=== PATIENT | female | born 1980 | race Caucasian/White ===

== ENCOUNTER → 2017-12-27 | Outpatient (CLI) | payer BC ==
--- NOTE | 2017-12-27 15:56 | RAD ---
Pelvic ultrasound, 12/27/2017: HISTORY: Excessive and frequent menstruation Transabdominal and transvaginal scans were obtained. The uterus measures 9.7 x 5.0 x 4.4 cm. This intrauterine echo complex measures 5-6 mm. No uterine abnormality is detected. The ovaries are of normal size. They contain small follicular cysts. No adnexal mass is seen. No free fluid is evident in the pelvis. IMPRESSION: No significant abnormality is detected. Electronically signed by: Rosas Lind MD (12/27/2017 3:53 PM) [facility]
== END | disposition home or self-care (01) ==
LOC: US 10:40
PROVIDERS: ATTEND Physician Assistant
DX: N83.02 Follicular cyst of left ovary (principal); N83.01 Follicular cyst of right ovary
CPT/HCPCS: 76830; 76856

== ENCOUNTER 2018-08-17 13:24 | Emergency (ER) | payer BC ==
[~2018-08-17] VITALS: Ht 162.6 cm; Wt 81.6 kg
--- NOTE | 2018-08-17 14:27 | RAD ---
Chest, PA and Lateral: Technique: PA and lateral views of the chest were obtained. History: Cough, congestion. Comparison: None. Findings: The heart size grossly appears unremarkable. There are patchy bibasilar lung airspace opacities likely atelectasis or infiltrates. IMPRESSION: Patchy bibasilar lung airspace opacities likely atelectasis or infiltrates. Electronically signed by: Robin Gupta MD (08/17/2018 2:24 PM) [facility]
--- NOTE | 2018-08-17 14:36 | PHYS DOC ---
Past History Past Medical History: Hypothyroid Past Surgical History: , Tonsillectomy, Tubal ligation Alcohol Use: None Drug Use: None Adult General Chief Complaint Chief Complaint: FLU SYMPTOM HPI HPI Patient is a 38 year old female who presents with complaint of cough and fever. Patient states that her cough started 6 days ago and has gradually worsened since onset. He states over the past 3-4 days she has been having recurrent fever. Notes nasal drainage but no sore throat or ear pain. Has been taking krli-[id number]-[id number] medication for treatment of symptoms with no significant relief. Cough is nonproductive. Denies any chest pain, abdominal pain, diarrhea, or vomiting. Due to worsening symptoms patient came to the emergency department for further evaluation. Denies any history of recurrent bronchitis or asthma symptoms. Review of Systems Review of Systems Constitutional: Fever, chills, fatigue[] Eyes: Denies change in visual acuity, redness, or eye pain [] HENT: Nasal congestion, denies sore throat or ear pain[] Respiratory: Cough, denies shortness of breath[] Cardiovascular: Denies chest pain or edema[] GI: Denies abdominal pain, nausea, vomiting, bloody stools or diarrhea [] : Denies dysuria or hematuria [] Musculoskeletal: Denies back pain or joint pain [] Integument: Denies rash or skin lesions [] Neurologic: Denies headache, focal weakness or sensory changes [] All other systems were reviewed and found to be within normal limits, except as documented in this note. Allergies Allergies Allergies Coded Allergies Type Severity Reaction Last Updated Verified doxycycline Allergy Unknown 08/17/18 Yes Physical Exam Physical Exam Constitutional: Alert, afebrile, appears ill. [] HENT: Normocephalic, atraumatic, bilateral external ears normal, oropharynx moist, no oral exudates, nose normal. [] Eyes: PERRLA, EOMI, conjunctiva normal, no discharge. [] Neck: Normal range of motion, no tenderness, supple, no stridor. [] Cardiovascular:Heart rate regular rhythm, no murmur [] Lungs & Thorax: Nonlabored respirations, fine rales in bilateral lung bases, no wheezes[] Abdomen: Bowel sounds normal, soft, no tenderness, no masses, no pulsatile masses. [] Skin: Warm, dry, no erythema, no rash. [] Back: No tenderness, no CVA tenderness. [] Extremities: No tenderness, no cyanosis, no clubbing, ROM intact, no edema. [] Neurologic: Alert and oriented X 3, normal motor function, normal sensory function, no focal deficits noted. [] Current Patient Data Vital Signs Vital Signs Date Time Temp Pulse Resp B/P (MAP) Pulse Ox O2 Delivery O2 Flow Rate FiO2 08/17/18 13:24 98.4 76 22 98 Room Air Lab Results Laboratory Tests Test 08/17/18 13:50 Influenza Type A (Rapid) Negative Influenza Type B (Rapid) Negative EKG EKG Not performed[] Radiology/Procedures Radiology/Procedures [address] [address] IMAGING REPORT Signed PATIENT: JAMESSEPTEMBER ACCOUNT: [id number] : 1980 LOCATION: ER AGE: 38 SEX: F EXAM STATUS: REG ER ORD. PHYSICIAN: CORTNEY OSEI MD REASON: Congestion, cough for 6 days PROCEDURE: CHEST PA & LATERAL Chest, PA and Lateral: Technique: PA and lateral views of the chest were obtained. History: Cough, congestion. Comparison: None. Findings: The heart size grossly appears unremarkable. There are patchy bibasilar lung airspace opacities likely atelectasis or infiltrates. IMPRESSION: Patchy bibasilar lung airspace opacities likely atelectasis or infiltrates. Electronically signed by: Robin Gupta MD (08/17/2018 2:24 PM) [facility] DICTATED AND SIGNED BY: ROBIN GUPTA MD DATE: 08/17/18 1424 CC: CORTNEY OSEI MD; NAME,MOLLY ARAUJO ~ [] Course & Med Decision Making Course & Med Decision Making Pertinent Labs and Imaging studies reviewed. (See chart for details) Patient's chest x-ray shows findings concerning for atypical pneumonia. Patient given prescription for azithromycin and albuterol inhaler. Advised follow-up in 4-5 days with primary doctor for reevaluation. Advised return to emergency department for any worsening symptoms. Patient was understanding and in agreement with treatment plan.[] Dragon Disclaimer Dragon Disclaimer This electronic medical record was generated, in whole or in part, using a voice recognition dictation system. Departure Departure: Impression: Primary Impression: Atypical pneumonia Disposition: HOME, SELF-CARE Condition: STABLE Referrals: NAME,MOLLY ARAUJO (PCP) Patient Instructions: Pneumonia, Adult Additional Instructions: Follow-up with your primary doctor in 4-5 days for reevaluation. Return to the emergency department for any worsening symptoms. Scripts Albuterol Sulfate (PROAIR HFA INHALER) 8.5 Gm Hfa.aer.ad 1 PUFF INH PRN Q6HRS PRN for WHEEZING, #1 INHALER 0 Refills Prov: CORTNEY OSEI MD 08/17/18 Azithromycin (AZITHROMYCIN TABLET) 250 Mg Tablet 1 PKG PO UD, #6 TAB Prov: CORTNEY OSEI MD 08/17/18 CORTNEY OSEI MD Aug 17, 2018 14:36
[2018-08-17 15:04] VITALS: BP 104/73
[2018-08-17 15:04] LABS: INFLUENZA A PATIENT NEGATIVE (NEGATIVE); INFLUENZA B PATIENT NEGATIVE (NEGATIVE)
[2018-08-17] MEDS ORDERED: AZIT250T6 PO (15:11)
[2018-08-17] MEDS ORDERED: ALBU2.5V8 INH (15:11)
== END 2018-08-17 15:15 | disposition home or self-care (01) ==
LOC: ER 13:24
DX: J18.9 Pneumonia, unspecified organism (principal); E03.9 Hypothyroidism, unspecified; Z88.1 Allergy status to other antibiotic agents
CPT/HCPCS: 71046; 87804; 99284